=== PATIENT | male | born 1970 | race Caucasian/White ===

== ENCOUNTER 2018-01-12 16:48 | Emergency (ER) | payer BC, OTHER ==
--- NOTE | 2018-01-12 16:55 | PDOC ---
Rapid Medical Evaluation Time Seen by Provider: 01/12/18 16:52 Medical Evaluation: Allergies Allergy/AdvReac Type Severity Reaction Status Date / Time Penicillins Allergy Verified 02/28/13 21:00 I have performed a brief in-person evaluation of this patient. The patient presents with a chief complaint of: sharp pains to anterior chest x 10 days Pertinent physical exam findings: I have ordered the following: EKG, labs, CXR The patient will proceed to the ED for further evaluation. Discharge Disposition - Diagnosis Chest pain - Referrals - Patient Instructions - Post Discharge Activity
[2018-01-12 17:09] VITALS: TEMP 98; BMI 28.7
[2018-01-12 17:38] LABS: BASO % 0.9 % (0-2.0); EOS % 2.5 % (0-4.5); HEMATOCRIT 47.2 % (35.4-49); HEMOGLOBIN 16.6 GM/dL (11.7-16.9); LYMPH % 37.9 % (8-40); MCH 33.4 pg (25.7-33.7); MCHC 35.3 g/dl (32.0-35.9); MEAN CELL VOLUME 94.8 fl (80-96); MEAN PLT VOLUME 8.5 fl (7.5-11.1); MONO % 5.9 % (3.8-10.2); NEUT % 52.8 % (42.8-82.8); PLATELET COUNT 252 K/MM3 (134-434); RBC 4.98 M/mm3 (4.00-5.60); RDW 12.7 % (11.9-15.9); WHITE BLOOD COUNT 10.8 K/mm3 (4.0-10.0)
--- NOTE | 2018-01-12 18:11 | PDOC ---
History of Present Illness - General Chief Complaint: Chest Pain Stated Complaint: CHEST PAIN Time Seen by Provider: 01/12/18 16:52 History Source: Patient Exam Limitations: No Limitations - History of Present Illness Initial Comments: 01/12/18 18:05 Patient is a 47M with history of possible diabetes here today complaining of 10 days of intermittent stabbing chest pain. Patient states that the pain comes and goes, lasting a few seconds each time. Denies fever, chills, nausea, vomiting. Denies associated shortness of breath. Pain is not reproducible. Denies recent heavy activity. Denies history of blood clots, leg swelling. Past History - Past Medical History Allergies/Adverse Reactions: Allergies Allergy/AdvReac Type Severity Reaction Status Date / Time Penicillins Allergy Verified 01/12/18 16:52 Home Medications: Ambulatory Orders Ibuprofen [Motrin -] 600 mg PO PRN PRN #16 tablet 03/01/13 Sulfamethoxazole/Trimethoprim [Bactrim *Ds*] 1 tab PO BID #14 tablet 03/01/13 metFORMIN HCL [Glucophage -] 500 mg PO DAILY #30 tablet 03/01/13 COPD: No Diabetes: Yes - Suicide/Smoking/Psychosocial Hx Smoking Status: Yes Smoking History: Current every day smoker Have you smoked in the past 12 months: Yes Number of Cigarettes Smoked Daily: 20 Information on smoking cessation initiated: Yes 'Breaking Loose' booklet given: 01/12/18 Hx Alcohol Use: No Drug/Substance Use Hx: No Substance Use Type: None Review of Systems - Review of Systems Comments:: 01/12/18 18:11 GENERAL/CONSTITUTIONAL: No fever or chills. No weakness. HEAD, EYES, EARS, NOSE AND THROAT: No change in vision. No sore throat. CARDIOVASCULAR: Positive for chest pain. Negative for shortness of breath RESPIRATORY: No cough, wheezing, or hemoptysis. GASTROINTESTINAL: No nausea, vomiting, diarrhea or constipation. GENITOURINARY: No dysuria, frequency, or change in urination. MUSCULOSKELETAL: No joint or muscle swelling or pain. No neck or back pain. SKIN: No rash NEUROLOGIC: No headache, vertigo, loss of consciousness, or change in strength/ sensation. HEMATOLOGIC/LYMPHATIC: No anemia, easy bleeding, or history of blood clots. ALLERGIC/IMMUNOLOGIC: No hives or skin allergy. *Physical Exam - Vital Signs Last Vital Signs Temp Pulse Resp BP Pulse Ox 98.0 F 102 H 20 154/100 100 01/12/18 16:53 01/12/18 16:53 01/12/18 16:53 01/12/18 16:53 01/12/18 16:53 - Physical Exam Comments: 01/12/18 18:11 GENERAL: Awake, alert, and fully oriented, in no acute distress HEAD: No signs of trauma, normocephalic, atraumatic EYES: PERRLA, EOMI, sclera anicteric, conjunctiva clear ENT: Auricles normal inspection, hearing grossly normal, nares patent, oropharynx clear without exudates. Moist mucosa NECK: Normal ROM, supple, no lymphadenopathy, JVD, or masses LUNGS: No distress, speaks full sentences, clear to auscultation bilaterally HEART: Regular rate and rhythm, normal S1 and S2, no murmurs, rubs or gallops, peripheral pulses normal and equal bilaterally. ABDOMEN: Soft, nontender, normoactive bowel sounds. No guarding, no rebound. No masses EXTREMITIES: Normal inspection, Normal range of motion, no edema. No clubbing or cyanosis. NEUROLOGICAL: Cranial nerves II through XII grossly intact. Normal speech, normal gait, no focal sensorimotor deficits SKIN: Warm, Dry, normal turgor, no rashes or lesions noted. Heart Score/ECG Review - History History: Slightly suspicious - Electrocardiogram EKG: Normal - Age Age: 45-65 - Risk Factors Risk Factors Heart Score: Yes Hx Diabetes, Yes Smoking History Based on the list above the patient has:: 1-2 risk factors - Troponin Troponin: </= normal limit - Score Heart Score - Total: 2 ED Treatment Course - LABORATORY CBC & Chemistry Diagram: 01/12/18 17:16 01/12/18 17:16 - ADDITIONAL ORDERS Additional order review: 01/12/18 17:16 RBC 4.98 MCV 94.8 MCHC 35.3 RDW 12.7 MPV 8.5 Neutrophils % 52.8 Lymphocytes % 37.9 Monocytes % 5.9 Eosinophils % 2.5 Basophils % 0.9 Medical Decision Making - Medical Decision Making 01/12/18 18:11 Patient is 47M with history of questionable diabetes here today complaining of chest pain. Tachycardic to 102 in triage, not tachycardic during my exam. Chest pain story very atypical. Will evaluate with cbc, cmp, trop, pt/inr, ekg, cxr. Discharge after two trops. Symptoms of intermittent chest pain not typical at all for PE, do not believe patient has PE. EKG shows normal sinus rhythm with rate of 95. No st elevations/depressions. No significant t wave abnormalities. V2/V3 shows early repol. Normal QRS/PA/QTc intervals. 01/12/18 18:33 01/12/18 18:58 Laboratory Tests 01/12/18 01/12/18 17:16 17:16 WBC 10.8 H Hgb 16.6 Plt Count 252 D Troponin I < 0.02 CBC normal. CMP reassuring. Troponin undetectable. CXR shows no acute cardiopulmonary process. 01/12/18 18:[address] Carrillo pending second trop and discharge. *DC/Admit/Observation/Transfer Diagnosis at time of Disposition: Chest pain - Referrals Referrals: [facility] [place] [facility] [place] [Provider Group] Darren Morin MD [Staff Physician] - Ap Calabrese MD [Staff Physician] - - Patient Instructions Printed Discharge Instructions: DI for Atypical Chest Pain Additional Instructions: Please return if you have any new, worsening or concerning symptoms. Please follow up with a primary care physician, tax auditor and GI. Their numbers have been included in your paperwork. - Post Discharge Activity
[2018-01-12 18:20] LABS: ALBUMIN 3.8 g/dl (3.4-5.0); ANION GAP 9 (8-16); BILIRUBIN,TOTAL 0.4 mg/dL (0.2-1.0); BLOOD UREA NITROGEN 14 mg/dL (7-18); CALCIUM 8.8 mg/dL (8.5-10.1); CHLORIDE 98 mmol/L (98-107); CO2 28 mmol/L (21-32); GLUCOSE,RANDOM 283 mg/dL (74-106); SODIUM 135 mmol/L (136-145)
[2018-01-12 18:22] LABS: ALK PHOS 103 U/L (45-117)
[2018-01-12 18:42] LABS: POTASSIUM 4.3 mmol/L (3.5-5.1); SGOT/AST 18 U/L (15-37); SGPT/ALT 38 U/L (12-78); TOT PROT 7.4 g/dl (6.4-8.2)
--- NOTE | 2018-01-12 18:48 | PDOC ---
Attending Attestation - Resident Resident Name: Jose Francisco Vargas - ED Attending Attestation I have performed the following: I have examined & evaluated the patient, The case was reviewed & discussed with the resident, I agree w/resident's findings & plan, Exceptions are as noted - HPI HPI: 01/12/18 18:45 47-year-old male patient with history of diabetes, smoking history presents with atypical chest pain for 10 days. The patient reports several seconds of midsternal stabbing chest pain without associated shortness of breath or radiation. No nausea, vomiting, diaphoresis. States the pain would resolve. States that the pain would occasionally occur while drinking coffee and states that crates of burning sensation. Never had a stress test or an echocardiogram. Denies prior cardiac history. Came into the ED for further management. - Physicial Exam PE: 01/12/18 18:46 GENERAL: Awake, alert, and fully oriented, in no acute distress. HEAD: No signs of trauma EYES: PERRLA, EOMI, sclera anicteric, conjunctiva clear ENT: Auricles normal inspection, hearing grossly normal, nares patent, NECK: Normal ROM, supple LUNGS: Breath sounds equal, clear to auscultation bilaterally. No wheezes, and no crackles HEART: Regular rate and rhythm, normal S1 and S2, no murmurs, rubs or gallops ABDOMEN: Soft, nontender, No guarding, no rebound. No masses EXTREMITIES: Normal range of motion, no edema. No clubbing or cyanosis. No cords, erythema, or tenderness NEUROLOGICAL: Cranial nerves II through XII grossly intact. Normal speech, normal gait SKIN: Warm, Dry, normal turgor, no rashes or lesions noted. - Medical Decision Making 01/12/18 18:47 Vital Signs Temp Pulse Resp BP Pulse Ox 98.0 F 102 H 20 154/100 100 01/12/18 16:53 01/12/18 16:53 01/12/18 16:53 01/12/18 16:53 01/12/18 16:53 The patient's chest pain is very atypical. Though the patient has risk factors, I have low suspicion for acute coronary syndrome. EKG is reassuring. Initial troponin is negative. If the second troponin is negative, the patient is to be discharged with follow-up with the sterile supply technician as an outpatient. There is some suspicion the patient may potentially have acid reflux given his history. We will initiate Protonix and have the patient follow-up with a shift mechanic. I do not suspect pulmonary embolism either at this time. Heart Score/ECG Review - History History: Slightly suspicious - Electrocardiogram EKG: Normal - Age Age: 45-65 - Risk Factors Risk Factors Heart Score: Yes Hx Diabetes, Yes Smoking History, Yes Hx Obesity Based on the list above the patient has:: >/=3 risk factors or Hx atherosclerotic disease - Troponin Troponin: </= normal limit - Score Heart Score - Total: 3 #1 ECG reviewed & interpreted by me at: 17:00 01/12/18 18:46 NSR 95, no std/beverley, normal axis, normal intervals, QTC 424 msec
[2018-01-12 20:51] VITALS: BP 159/112; PULSE 92
--- NOTE | 2018-01-12 20:56 | PDOC ---
*Physical Exam - Vital Signs Last Vital Signs Temp Pulse Resp BP Pulse Ox 98.0 F 92 H 20 159/112 97 01/12/18 16:53 01/12/18 20:50 01/12/18 16:53 01/12/18 20:50 01/12/18 20:50 - Physical Exam Comments: 01/12/18 20:55 General Appearance: Nourished. No Apparent Distress HEENT: No Pharyngeal Erythema, Tonsillar Exudate, Tonsillar Erythema Neck: No Cervical Lymphadenopathy Respiratory/Chest: Lungs Clear, Normal Breath Sounds. No Crackles, Rales, Rhonchi, Wheezing Cardiovascular: Regular Rhythm, Regular Rate. No Murmur, Gallops, Rubs Gastrointestinal/Abdominal: Normal Bowel Sounds, Soft. No Guarding, Rebound, Tenderness Musculoskeletal: No CVA Tenderness Extremity: Normal Capillary Refill Integumentary: Normal Color, Dry, Warm Neurologic: Fully Oriented, Alert, Normal Mood/Affect, Normal Response, ED Treatment Course - LABORATORY CBC & Chemistry Diagram: 01/12/18 17:16 01/12/18 17:16 - ADDITIONAL ORDERS Additional order review: Laboratory Results 01/12/18 01/12/18 20:02 17:16 Sodium 135 L Potassium 4.3 Chloride 98 Carbon Dioxide 28 Anion Gap 9 BUN 14 Creatinine 1.0 D Creat Clearance w eGFR > 60 Random Glucose 283 H Calcium 8.8 Total Bilirubin 0.4 AST 18 D ALT 38 Alkaline Phosphatase 103 D Creatine Kinase 85 97 Troponin I < 0.02 < 0.02 Total Protein 7.4 Albumin 3.8 01/12/18 17:16 RBC 4.98 MCV 94.8 MCHC 35.3 RDW 12.7 MPV 8.5 Neutrophils % 52.8 Lymphocytes % 37.9 Monocytes % 5.9 Eosinophils % 2.5 Basophils % 0.9 Progress Note - Progress Note Progress Note: The patient is a 47 year old male who presents for evaluation of chest pain. Work up has been negative thus far. The patient is pending a repeat troponin. Medical Decision Making - Medical Decision Making 01/12/18 21:10 Repeat troponin is unremarkable. We are comfortable discharging the patient home at this time with primary care provider and cardiology follow up. We discussed the results, plan, and return precautions with the patient who voiced understanding and is agreeable with the plan. *DC/Admit/Observation/Transfer Diagnosis at time of Disposition: Chest pain Qualifiers: Chest pain type: unspecified Qualified Code(s): R07.9 - Chest pain, unspecified - Discharge Dispostion Disposition: HOME Condition at time of disposition: Stable Decision to Admit order: No - Prescriptions Prescriptions: Hydrochlorothiazide [Hctz -] 25 mg PO DAILY #30 tablet - Referrals Referrals: [facility] [place] [place] [Provider Group] Darren Morin MD [Staff Physician] - Ap Calabrese MD [Staff Physician] - - Patient Instructions Printed Discharge Instructions: DI for Atypical Chest Pain Additional Instructions: Please return if you have any new, worsening or concerning symptoms. Please follow up with a primary care physician, galley boy and GI. Their numbers have been included in your paperwork. - Post Discharge Activity
--- NOTE | 2018-01-14 22:25 | EKG ---
Test Reason : Blood Pressure : / mmHG Vent. Rate : 095 BPM Atrial Rate : 095 BPM P-R Int : 118 ms QRS Dur : 086 ms QT Int : 338 ms P-R-T Axes : 065 054 059 degrees QTc Int : 424 ms NORMAL SINUS RHYTHM NORMAL ECG NO PREVIOUS ECGS AVAILABLE Confirmed by PAUL FINK MD ([id number]) on 01/14/2018 10:24:48 PM Referred By: Confirmed By:PAUL FINK MD
== END 2018-01-12 21:14 | disposition home or self-care (01) ==
LOC: JER 16:48
DX: R07.9 Chest pain, unspecified (principal); E11.9 Type 2 diabetes mellitus without complications; Z79.84 Long term (current) use of oral hypoglycemic drugs
CPT/HCPCS: 36415; 71046-TC-FY; 80053; 82550; 84484; 85025; 93005; 93010; 99283-25

== ENCOUNTER 2020-05-09 04:55 | Emergency (ER) | payer BC, OTHER ==
--- OUTSIDE RECORDS SUMMARY | 2020-05-09 05:32 | XMS ---
:1970 Author Organization [facility] Support Name Relationship Address Phone PANORMA Unavailable UNKNOWN [phone] , [place] [address] [phone] [place] [address] Re-disclosure Warning The records that you are about to access may contain information from federally- assisted alcohol or drug abuse programs. If such information is present, then the following federally mandated warning applies: This information has been disclosed to you from records protected by federal confidentiality rules (42 CFR part 2). The federal rules prohibit you from making any further disclosure of this information unless further disclosure is expressly permitted by the written consent of the person to whom it pertains or as otherwise permitted by 42 CFR part 2. A general authorization for the release of medical or other information is NOT sufficient for this purpose. The Federal rules restrict any use of the information to criminally investigate or prosecute any alcohol or drug abuse patient.The records that you are about to access may contain highly sensitive health information, the redisclosure of which is protected by Article 27-F of the [facility] Public Health law. If you continue you may haveaccess to information: Regarding HIV / AIDS; Provided by facilities licensed or operated by the [facility] Office of Mental Health; or Provided by the [facility] Office for People With Developmental Disabilities. If such information is present, then the following [facility] mandated warning applies: This information has been disclosed to you from confidential records which are protected by state law. State law prohibits you from making any further disclosure of this information without the specific written consent of the person to whom it pertains, or as otherwise permitted by law. Any unauthorized further disclosure in violation of state law may result in a fine or chcf sentence or both. A general authorization for the release of medical or other information is NOT sufficient authorization for further disclosure. Insurance Providers Payer name Policy type / Policy ID Covered Covered republican's Policy Plan Coverage type republican ID relationship to Andrew Information andrew [facility] [id number] JACINDA [id number] OUTPT 2 BC PPO [id number] JACINDA [id number]
[2020-05-09 05:40] VITALS: BP 143/87; PULSE 69; TEMP 98.1; BMI 24.3
[2020-05-09] MEDS ORDERED: ACETAMINOPHEN 1000 MG/100 ML VIAL (NON FORMULARY) IVPB ONE (05:40)
[2020-05-09] MEDS ORDERED: SODIUM CHLORIDE 1,000 ML IV STA (05:40)
[2020-05-09] MEDS ORDERED: ACETAMINOPHEN INJECTION 100 ML IVPB ONE (05:44)
[2020-05-09 06:23] LABS: BASO % 0.5 % (0-2.0); EOS % 0.5 % (0-4.5); HEMATOCRIT 46.4 % (35.4-49); HEMOGLOBIN 15.9 GM/dL (11.7-16.9); LYMPH % 12.2 % (8-40); MCH 33.3 pg (25.7-33.7); MCHC 34.2 g/dl (32.0-35.9); MEAN CELL VOLUME 97.3 fl (80-96); MEAN PLT VOLUME 8.7 fl (7.5-11.1); MONO % 6.5 % (3.8-10.2); NEUT % 80.3 % (42.8-82.8); PLATELET COUNT 202 K/MM3 (134-434); RBC 4.77 M/mm3 (4.00-5.60); RDW 13.1 % (11.9-15.9)
--- NOTE | 2020-05-09 06:26 | PDOC ---
History of Present Illness - General Chief Complaint: Pain, Acute Stated Complaint: ABD PAIN Time Seen by Provider: 05/09/20 06:01 - History of Present Illness Initial Comments: 05/09/20 06:13 50yo M with no reported PMH (and yet, inexplicably, is wearing a continuous glucose monitor) presents with abdominal pain for four hours. 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 Several hours later, he b roman having lower abdominal pain, worse on the right side, which made him concerned for appendicitis. Denies n/v, diarrhea, fever/chills. Took lemon and pepto-bismol with no relief. PMH/PSH: none Meds: none Allergies: penicillin ETOH/drugs: denies Tob: 1 pack per day x30 years ROS GENERAL/CONSTITUTIONAL: No fever or chills. No weakness. HEAD, EYES, EARS, NOSE AND THROAT: No change in vision. No ear pain or discharge. No sore throat. CARDIOVASCULAR: No chest pain or shortness of breath RESPIRATORY: No cough, wheezing, or hemoptysis. GASTROINTESTINAL: No nausea, vomiting, diarrhea or constipation. GENITOURINARY: No dysuria, frequency, or change in urination. MUSCULOSKELETAL: No joint or muscle swelling or pain. No neck or back pain. SKIN: No rash NEUROLOGIC: No headache, vertigo, loss of consciousness, or change in strength/sensation. ENDOCRINE: No increased thirst. No abnormal weight change HEMATOLOGIC/LYMPHATIC: No anemia, easy bleeding, or history of blood clots. ALLERGIC/IMMUNOLOGIC: No hives or skin allergy. PE GENERAL: Awake, alert, and fully oriented, in no acute distress HEAD: No signs of trauma, normocephalic, atraumatic EYES: PERRLA, EOMI, sclera anicteric, conjunctiva clear ENT: Auricles normal inspection, hearing grossly normal, nares patent, oropharynx clear without exudates. Moist mucosa NECK: Normal ROM, supple, no lymphadenopathy, JVD, or masses LUNGS: No distress, speaks full sentences, clear to auscultation bilaterally HEART: Regular rate and rhythm, normal S1 and S2, no murmurs, rubs or gallops, peripheral pulses normal and equal bilaterally. ABDOMEN: Soft, nontender, normoactive bowel sounds. No guarding, no rebound. No masses EXTREMITIES : Normal inspection, Normal range of motion, no edema. No clubbing or cyanosis. NEUROLOGICAL: Cranial nerves II through XII grossly intact. Normal speech, no focal sensorimotor deficits SKIN: Warm, Dry, normal turgor, no rashes or lesions noted Vital Signs Temp Pulse Resp BP Pulse Ox 98.1 F 69 18 143/87 99 05/09/20 05:36 05/09/20 05:36 05/09/20 05:36 05/09/20 05:36 05/09/20 05:36 50yo male with no reported PMH presents with lower abdominal pain after eating shrimp. Vitals reassuring. Abdomen soft. Low suspicion for appendicitis, cholecystitis, or acute abdominal pathology given benign abdominal exam. DDx also includes pancreatitis, gastroenteritis, kidney stone. -CBC, CMP, lipase, alcohol, UA -fluids, tylenol 05/09/20 06:50 Labs notable for blood in urine. Will get CT A/P w/o contrast to eval for kidney stone Also WBC 15.0 w/o shift 05/09/20 07:01 Signed out to day team pending CT read and CMP results Past History - Medical History Allergies/Adverse Reactions: Allergies Allergy/AdvReac Type Severity Reaction Status Date / Time Penicillins Allergy Verified 01/12/18 16:52 Home Medications: Ambulatory Orders metFORMIN HCL [Glucophage -] 500 mg PO DAILY #30 tablet 03/01/13 Hydrochlorothiazide [Hctz -] 25 mg PO DAILY #30 tablet 01/12/18 COPD: No Diabetes: Yes - Psycho-Social/Smoking History Smoking Status: Yes Smoking History: Current every day smoker Have you smoked in the past 12 months: Yes Number of Cigarettes Smoked Daily: 20 Information on smoking cessation initiated: Yes 'Breaking Loose' booklet given: 01/12/18 - Substance Abuse Hx (Audit-C & DAST Scrn) How often the patient has a drink containing alcohol: Never Score: In Men: 4 or > Positive; In Women: 3 or > Positive: 0 Screen Result (Pos requires Nsg. Audit-10AR): Negative In the last yr the pt used illegal drug/Rx for NonMed reason: No Score: Yes response is considered Positive: 0 Screen Result (Positive result requires Nsg. DAST-10): Negative *Physical Exam - Vital Signs Last Vital Signs Temp Pulse Resp BP Pulse Ox 98.1 F 69 18 143/87 99 05/09/20 05:36 05/09/20 05:36 05/09/20 05:36 05/09/20 05:36 05/09/20 05:36 ED Treatment Course - LABORATORY CBC & Chemistry Diagram: 05/09/20 05:58 05/09/20 05:58 - Medications Given in the ED: ED Medications Discontinued Medications Generic Name Dose Route Start Last Admin Trade Name Evie PRN Reason Stop Dose Admin Acetaminophen 1,000 mg 05/09/20 05:40 05/09/20 05:57 Ofirmev Injection - IVPB 05/09/20 05:41 1,000 mg ONCE ONE Administration Discharge - Discharge Information Problems reviewed: Yes Clinical Impression/Diagnosis: Abdominal pain Qualifiers: Abdominal location: lower abdomen, unspecified Qualified Code(s): R10.30 - Lower abdominal pain, unspecified - Follow up/Referral Referrals: Abdulkadir Walker MD [Primary Care Provider] - - Patient Discharge Instructions - Post Discharge Activity
[2020-05-09 06:31] LABS: EPI CELLS 1 /uL (0-25.1); HYALINE CASTS 0 /uL (0-3.1); PH,URINE 5.5 (5.0-8.0); URINE APPEARANCE CLEAR; URINE BACTERIA 11 /uL (0-1359); URINE BILIRUBIN NEGATIVE (NEGATIVE); URINE COLOR YELLOW; URINE GLUCOSE (UA) NEGATIVE (NEGATIVE); URINE KETONE NEGATIVE (NEGATIVE); URINE LEUK ESTERASE NEGATIVE (NEGATIVE); URINE NITRITE NEGATIVE (NEGATIVE); URINE PROTEIN NEGATIVE (NEGATIVE); URINE RBC 432 /uL (0-23.9); URINE UROBILINOGEN 0.2 mg/dL (0.2-1.0); URINE WBC 3 /uL (0-25.8)
--- NOTE | 2020-05-09 07:06 | PDOC ---
Attending Attestation - Resident Resident Name: Mik Ponce - ED Attending Attestation I have performed the following: I have examined & evaluated the patient, The case was reviewed & discussed with the resident, I agree w/resident's findings & plan, Exceptions are as noted - HPI HPI: 05/09/20 07:04 50 M with h/o DM presenting with lower abdominal pain. Pt states that he had shrimp last night for dinner. Then, overnight, he developed pain in his R lower abdomen. Pt denies F/C. Denies N/V/D. - Physicial Exam PE: 05/09/20 07:05 "GENERAL: Awake, alert, and fully oriented, in no acute distress. HEAD: No signs of trauma EYES: PERRLA, EOMI, sclera anicteric, conjunctiva clear ENT: Auricles normal inspection, hearing grossly normal, nares patent, oropharynx clear without exudates. Moist mucosa NECK: Nontender, no stepoffs, Normal ROM, supple, no lymphadenopathy, JVD, or masses LUNGS: Breath sounds equal, clear to auscultation bilaterally. No wheezes, and no crackles HEART: Regular rate and rhythm, normal S1 and S2, no murmurs, rubs or gallops ABDOMEN: Soft, nontender, normoactive bowel sounds. No guarding, no rebound. No masses EXTREMITIES: Normal range of motion, no edema. No clubbing or cyanosis. No cords, erythema, or tenderness NEUROLOGICAL: Cranial nerves II through XII intact. 5/5 strength and sensation in all extremities, Normal speech, normal gait, normal cerebellar function SKIN: Warm, Dry, normal turgor, no rashes or lesions noted. - Medical Decision Making 05/09/20 07:06 50 M with abdominal pain. Completely benign exam, no tenderness. - Labs UA with + blood, will obtain CT to r/o nephrolithiasis 05/09/20 07:35 CT shows R ureteral stone Labs unremarkable 05/09/20 08:01 Pt reassessed - pain well controlled. Will DC with urology f/u Pt is well appearing, with normal vitals. Clinically stable for DC at this time. I discussed the physical exam findings, ancillary test results and final diagnoses with the patient. I answered all of the patient's questions. The patient was satisfied with the care received and felt comfortable with the discharge plan and treatment plan. The patient agrees to follow up with the primary care physician within 24-72 hours. Discharge - Discharge Information Problems reviewed: Yes Clinical Impression/Diagnosis: Kidney stone on right side, Flank pain Abdominal pain Qualifiers: Abdominal location: lower abdomen, unspecified Qualified Code(s): R10.30 - Lower abdominal pain, unspecified Condition: Stable Disposition: HOME - Additional Discharge Information Prescriptions: Tamsulosin HCl [Flomax] 0.4 mg PO DAILY 10 Days #10 cap.er.24h - Follow up/Referral Referrals: Russ Dave MD [Staff Physician] - Abdulkadir Walker MD [Primary Care Provider] - - Patient Discharge Instructions Patient Printed Discharge Instructions: Kidney Stones -- Adult Additional Instructions: You were seen in the ER for flank pain. You have a Kidney stone on the right side - it is small and should pass on its own. Follow up with your primary care provider as soon as possible, in the next 5-7 days. Return to the ER if you develop high fevers, weakness, confusion, intractable nausea and vomiting. - Post Discharge Activity
[2020-05-09 07:13] LABS: ALBUMIN 3.7 g/dl (3.4-5.0); BILIRUBIN,TOTAL 0.3 mg/dL (0.2-1); BLOOD UREA NITROGEN 35.5 mg/dL (7-18); CALCIUM 9.1 mg/dL (8.5-10.1); CREATININE 0.9 mg/dL (0.55-1.3); POTASSIUM 4.5 mmol/L (3.5-5.1)
--- NOTE | 2020-05-09 07:16 | PDOC ---
*Physical Exam - Vital Signs Last Vital Signs Temp Pulse Resp BP Pulse Ox 98.1 F 69 18 143/87 99 05/09/20 05:36 05/09/20 05:36 05/09/20 05:36 05/09/20 05:36 05/09/20 05:36 ED Treatment Course - LABORATORY CBC & Chemistry Diagram: 05/09/20 05:58 05/09/20 05:58 - ADDITIONAL ORDERS Additional order review: Laboratory Results 05/09/20 05/09/20 05:58 05:58 Urine Color Yellow Urine Appearance Clear Urine pH 5.5 Ur Specific [place] 1.021 Urine Protein Negative Urine Glucose (UA) Negative Urine Ketones Negative Urine Blood 2+ H Urine Nitrite Negative Urine Bilirubin Negative Urine Urobilinogen 0.2 Ur Leukocyte Esterase Negative Urine WBC (Auto) 3 Urine RBC (Auto) 432 Urine Casts (Auto) 0 U Epithel Cells (Auto) 1 Urine Bacteria (Auto) 11 Alcohol, Quantitative < 3 05/09/20 05:58 RBC 4.77 MCV 97.3 H MCHC 34.2 RDW 13.1 MPV 8.7 Neutrophils % 80.3 D Lymphocytes % 12.2 D Monocytes % 6.5 Eosinophils % 0.5 Basophils % 0.5 - Medications Given in the ED: ED Medications Discontinued Medications Generic Name Dose Route Start Last Admin Trade Name Evie PRN Reason Stop Dose Admin Acetaminophen 1,000 mg 05/09/20 05:40 05/09/20 05:57 Ofirmev Injection - IVPB 05/09/20 05:41 1,000 mg ONCE ONE Administration Sodium Chloride 1,000 mls @ 1,000 mls/hr 05/09/20 05:40 05/09/20 05:57 Normal Saline - IV 05/09/20 06:39 1,000 mls/hr ASDIR STA Administration Medical Decision Making - Medical Decision Making 05/09/20 07:08 Sign out received from Dr. Ponce. 50M w/no PMH p/w R flank pain, leukocytosis noted on initial CBC, UA notable for hematuria. Pending: CT for eval of nephrolithiasis Dispo: Pending imaging, remaining labs 05/09/20 07:46 CT - notable for 3x4 mm stone in mid-ureter Plan for discharge on flomax with close follow up Discharge - Discharge Information Problems reviewed: Yes Clinical Impression/Diagnosis: Kidney stone on right side Abdominal pain Qualifiers: Abdominal location: lower abdomen, unspecified Qualified Code(s): R10.30 - Lower abdominal pain, unspecified Condition: Stable Disposition: HOME - Admission No - Follow up/Referral Referrals: Abdulkadir Walker MD [Primary Care Provider] - - Patient Discharge Instructions Patient Printed Discharge Instructions: Kidney Stones -- Adult Additional Instructions: You were seen in the ER for flank pain. You have a Kidney stone on the right side - it is small and should pass on its own. Follow up with your primary care provider as soon as possible, in the next 5-7 days. Return to the ER if you develop high fevers, weakness, confusion, intractable nausea and vomiting. - Post Discharge Activity
== END 2020-05-09 08:16 | disposition home or self-care (01) ==
LOC: JER 04:55
PROC: 3E0333Z Introduction of Anti-inflammatory into Peripheral Vein, Percutaneous Approach (ICD-10-PCS; principal; 2020-05-09)
PROC: 3E0337Z Introduction of Electrolytic and Water Balance Substance into Peripheral Vein, Percutaneous Approach (ICD-10-PCS; 2020-05-09)
DX: N20.0 Calculus of kidney (principal); R10.30 Lower abdominal pain, unspecified
CPT/HCPCS: 36415; 74176-TC; 80053; 80307; 81003; 83690; 85025; 99284-25; J0131